=== PATIENT | male | born 1965 | race Caucasian/White ===

== ENCOUNTER 2022-07-25 19:18 | Emergency (ER) | payer OTHER | END 2022-07-25 20:37 | disposition home or self-care (01) | LOC: ERS 19:18 | DX: S50.862A Insect bite (nonvenomous) of left forearm, initial encounter (principal); S50.12XA Contusion of left forearm, initial encounter; E11.9 Type 2 diabetes mellitus without complications; W57.XXXA Bitten or stung by nonvenomous insect and other nonvenomous arthropods, initial encounter | CPT/HCPCS: 99282 ==

== ENCOUNTER 2022-09-25 08:51 | Outpatient (CLI) | payer OTHER | END 2022-09-25 08:52 | disposition home or self-care (01) | LOC: CT 08:51 | DX: Z12.2 Encounter for screening for malignant neoplasm of respiratory organs (principal) | CPT/HCPCS: 71271 ==

== ENCOUNTER 2024-01-25 23:07 | Inpatient (IN) | payer OTHER ==
[~2024-01-25 23:07] MED LIST: Iopamidol-370 76% 500 ML MDV (1 ML CHARGE) ONE
[2024-01-25 23:59] LABS: #Basophils Less than 0.03 10x3/uL (0.0-0.2); %Basophils 0.2 % (0.0-1.0); %Eosinophils 2.3 % (0.0-10.0); %Lymphocytes 23.7 % (21.0-51.0); %Monocytes 10.7 % (0.0-10.0); %Neutrophils 62.7 % (42.0-75.0); Hematocrit 44.3 % (42.0-52.0); Hemoglobin 15.9 g/dL (14.0-18.0); Mean Corpuscular HGB CONC 35.9 g/dL (32.0-36.0); Mean Corpuscular Hemoglobin 34.2 pg (27.0-31.0); Mean Corpuscular Volume 95.3 fL (78.0-98.0); Mean Platelet Volume 10.2 fL (7.4-10.4); Platelet Count 166 10x3/uL (130-400); RBC Distribution Width 12.2 % (11.5-14.5); Red Blood Cell (RBC) Count 4.65 mill/uL (4.70-6.10)
[2024-01-26 00:09] LABS: INR-International Normal Ratio 0.9; Prothrombin Time 12.6 sec (12.0-14.7)
[2024-01-26 00:10] LABS: PTT 30.5 sec (22.9-36.1)
[2024-01-26 00:44] LABS: ALT (SGPT) 38 U/L (8-55); AST (SGOT) 14 U/L (5-34); Albumin 4.4 g/dL (3.5-5.0); Alkaline Phosphatase 51 U/L (40-110); Anion Gap 13 mmol/L (10-20); BUN (Urea Nitrogen) 17 mg/dL (8.4-25.7); Bilirubin, Total 0.3 mg/dL (0.2-1.2); Calc. Creatinine Clearance 0 mL/min (70-130); Calcium 9.4 mg/dL (7.8-10.44); Carbon Dioxide 24 mmol/L (22-29); Chloride 106 mmol/L (98-107); Estimated GFR 100; Globulin 2.5 g/dL (2.4-3.5); Glucose 184 mg/dL (70-105); Potassium 3.8 mmol/L (3.5-5.1); Protein, Total 6.9 g/dL (6.0-8.3); Sodium 139 mmol/L (136-145); Troponin I Less than 0.010 ng/mL (< 0.028)
[2024-01-26] MEDS ORDERED: Aspirin Chewable 81 MG TAB ONE (01:18)
[2024-01-26] MEDS ORDERED: Acetaminophen 325 MG TAB PO PRN (03:44)
[2024-01-26] MEDS ORDERED: Ondansetron PF 4 MG/2 ML Vial IVP PRN (03:44)
[2024-01-26] MEDS ORDERED: Acetaminophen 650 MG Suppository PR PRN (03:44)
[2024-01-26] MEDS ORDERED: Glucagon 1 MG/ML KIT IM PRN (03:44)
[2024-01-26] MEDS ORDERED: Dextrose 50% Abboject 50 ML SYRINGE SLOW IVP PRN (03:44)
[2024-01-26] MEDS ORDERED: Ondansetron ODT 4 MG TAB PO PRN (03:44)
[2024-01-26] MEDS ORDERED: HumaLOG 300 UNITS/3 ML VIAL SC PRN ×2 (03:44)
[2024-01-26] MEDS ORDERED: hydrALAZINE 20 MG/ML VIAL SLOW IVP PRN (03:44)
[2024-01-26] MEDS ORDERED: Dextrose 5% in Water 1,000 ML IV PRN (03:44)
[2024-01-26 04:53] LABS: Hemoglobin A1c 6.2 % (4.0-6.0)
[2024-01-26 06:37] VITALS: BMI 31.7
[2024-01-26] MEDS: Aspirin 81 mg Enteric Coated Tablet PO SCH (09:16)
[2024-01-26 11:20] VITALS: TEMP 98.4
[2024-01-26 12:09] VITALS: BP 132/88
[2024-01-26] MEDS ORDERED: valACYclovir 500 MG TAB PO SCH (21:00)
== END 2024-01-26 12:20 | disposition home or self-care (01) | DRG 74 ==
LOC: ERS 23:07 → 2SE 01-26 03:21
PROVIDERS: ADMIT Student in an Organized Health Care Education/Training Program; ATTEND Internal Medicine
DX: G51.0 Bell's palsy (principal); F17.210 Nicotine dependence, cigarettes, uncomplicated; E11.9 Type 2 diabetes mellitus without complications; E78.5 Hyperlipidemia, unspecified; Z90.49 Acquired absence of other specified parts of digestive tract; Z98.890 Other specified postprocedural states
CPT/HCPCS: 36415; 36416; 70496; 70498; 70551; 80053; 83036; 84484; 85025; 85610; 85730; 93005; 93306; 94760; Q9967